=== PATIENT | female | born 1960 ===

== ENCOUNTER 2021-08-14 05:52 | Day surgery (SDC) | payer OTHER ==
[~2021-08-14 05:52] MED LIST: CLARITIN10 M1 PO; COZAAR100 MG PO; CRESTOR5 MG PO; IMDUR; LABETALOL HCL100 MG PO; PEPCID AC20 MG PO; PLAVIX75 MG PO; REMERON15 MG PO; TRIUMEQ TABLET1 EACH
== END 2021-08-14 12:40 | disposition home or self-care (01) ==
LOC: CIR.AMB 05:52
PROVIDERS: ATTEND Colon & Rectal Surgery
DX: R15.9 Full incontinence of feces (principal); Z20.822 Contact with and (suspected) exposure to COVID-19
CPT/HCPCS: 64581; C1778

== ENCOUNTER 2021-08-28 05:47 | Day surgery (SDC) | payer OTHER | END 2021-08-28 12:50 | disposition home or self-care (01) | LOC: CIR.AMB 05:47 | PROVIDERS: ATTEND Colon & Rectal Surgery | DX: R15.9 Full incontinence of feces (principal); Z20.822 Contact with and (suspected) exposure to COVID-19 | CPT/HCPCS: 64590; 95971; L8679 ==